=== PATIENT | female | born 1960 ===

== ENCOUNTER 2020-10-23 08:00 | Inpatient (IN) | payer OTHER ==
[~2020-10-23] VITALS: Ht 157.5 cm; Wt 60.8 kg
[2020-10-23] MEDS ORDERED: ATACAND HCT 161 EACH PO (09:25)
[2020-10-23] MEDS ORDERED: ALPRAZOLAM XR1 MG PO (09:25)
== END 2020-10-27 19:19 | disposition home or self-care (01) | DRG 743 ==
LOC: O/R 10-26 05:35 → SURH 10-26 11:04
PROVIDERS: ADMIT Obstetrics & Gynecology Gynecologic Oncology; ATTEND Obstetrics & Gynecology Gynecologic Oncology
PROC: 0UT24ZZ Resection of Bilateral Ovaries, Percutaneous Endoscopic Approach (ICD-10-PCS; 2020-10-26)
PROC: 0UT74ZZ Resection of Bilateral Fallopian Tubes, Percutaneous Endoscopic Approach (ICD-10-PCS; 2020-10-26)
PROC: 07BC4ZZ Excision of Pelvis Lymphatic, Percutaneous Endoscopic Approach (ICD-10-PCS; 2020-10-26)
PROC: 0UT94ZZ Resection of Uterus, Percutaneous Endoscopic Approach (ICD-10-PCS; principal; 2020-10-26 07:00)
DX: N72 Inflammatory disease of cervix uteri (principal); N80.1 Endometriosis of ovary; N83.312 Acquired atrophy of left ovary